=== PATIENT | female | born 1975 | race Caucasian/White ===

== ENCOUNTER 2018-02-12 19:41 | Emergency (ER) | payer MEDICAID ==
[2018-02-12] MEDS ORDERED: METHYLPREDNISOLONE PF 125MG/VIAL IVP ONE (19:57)
[2018-02-12] MEDS ORDERED: IPRATROPIUM/ALBUTEROL (0.5MG/3MG) NEB INH ONE (19:57)
[2018-02-12] MEDS ORDERED: 0.9 % SODIUM CHLORIDE 1000ML 1,000 ML IV SCH (20:00)
--- NOTE | 2018-02-12 20:01 | Emergency Department Record ---
History of Present Illness - General Chief Complaint: Abdominal Pain Stated Complaint: ABDOMINAL PAIN,COUGH Time Seen by Provider: 02/12/18 19:50 Source: Patient Mode of Arrival: Ambulatory Limitations: No limitations - History of Present Illness Initial Comments: 42 yo female presents to ED for evaluation of non-productive cough symptoms and difficulty breathing symptoms for the past 1 week. Patient denies fevers/chills , reports a history of sarcoidosis. Patient denies history of asthma/COPD previously. Patient denies health problems at her baseline. Patient is also a current smoker. MD Complaint: Cough Onset/Timin -: Week(s) Severity: Moderate Quality: Aching Consistency: Constant Improves With: Nothing Worsens With: Nothing Associated Symptoms: Denies other symptoms Treatments Prior to Arrival: "Cold medicine" - Related Data Home Medications Medication Instructions Recorded Confirmed Last Taken Albuterol Sulfate [Ventolin Hfa] 1 - 2 puff IH .EVERY 4-6 HOURS PRN 02/12/1802/20 Unknown Budesonide/Formoterol Fumarate 2 inh IH BID 02/12/18 02/12/18 Unknown [Symbicort 160-4.5 Mcg Inhaler] Gabapentin [Neurontin] 100 mg PO TID 02/12/18 02/12/18 Unknown Metoclopramide HCl [Reglan] 5 mg PO TID 02/12/18 02/12/18 Unknown Prochlorperazine Maleate 5 mg PO Q12H PRN 02/12/18 02/12/18 Unknown [Compazine] Venlafaxine HCl [Effexor Xr] 37.5 mg PO BID 02/12/18 02/12/18 Unknown Previous Rx's Medication Instructions Recorded Albuterol Sulfate [Proair Hfa] 1 - 2 puff IH .EVERY 4-6 HOURS PRN 02/12/18 #1 inhaler Doxycycline Hyclate 100 mg PO BID #18 tab 02/12/18 Prednisone [Prednisone 20Mg] 20 mg PO TID #12 tab 02/12/18 Allergies Allergy/AdvReac Type Severity Reaction Status Date / Time ampicillin Allergy RASH Verified 02/12/18 19:47 Travel Screening - Travel/Exposure Within Last 30 Days Have you traveled within the last 30 days?: No - Travel Symptoms Symptom Screening: None Review of Systems Constitutional: Denies: Chills, Fever, Malaise, Night sweats Eyes: Denies: Eye discharge, Eye pain ENT: Reports: Congestion. Denies: Ear pain, Epistaxis Respiratory: Reports: Cough, Dyspnea, Wheezes Cardiovascular: Denies: Chest pain, Dyspnea on exertion Endocrine: Denies: Fatigue, Heat or cold intolerance Gastrointestinal: Reports: Abdominal pain. Denies: Nausea, Vomiting Genitourinary: Denies: Incontinence, Retention Musculoskeletal: Denies: Arthralgia, Back pain Skin: Denies: Bruising, Change in color Neurological: Denies: Abnormal gait, Confusion, Headache, Seizure Psychiatric: Denies: Anxiety Hematological/Lymphatic: Denies: Anemia, Blood Clots Past Medical History - SOCIAL HISTORY Smoking Status: Current every day smoker Alcohol Use: None Drug Use: None - RESPIRATORY Hx Respiratory Disorders: Yes Comment:: Sarcoidosis - CARDIOVASCULAR Hx Cardio Disorders: No - NEURO Hx Neuro Disorders: No - GI Hx GI Disorders: Yes Hx Crohn's Disease: Yes - Hx Genitourinary Disorders: No - ENDOCRINE Hx Endocrine Disorders: No - MUSCULOSKELETAL Hx Musculoskeletal Disorders: Yes Hx Arthritis: Yes - PSYCH Hx Psych Problems: Yes Hx Anxiety: Yes Hx Depression: Yes - HEMATOLOGY/ONCOLOGY Hx Hematology/Oncology Disorders: No Family Medical History Any Significant Family History?: No Family Hx Comment (NOT TO BE USED IN PLACE OF ITEMS BELOW): denies Physical Exam - General General Appearance: Alert, Oriented x3, Cooperative, Moderate distress Limitations: No limitations - Head Head exam: Atraumatic, Normocephalic, Normal inspection Head exam detail: negative: Abrasion, Contusion, Garzon's sign, General tenderness, Hematoma, Laceration - Eye Eye exam: Normal appearance. negative: Conjunctival injection, Periorbital swelling, Periorbital tenderness, Scleral icterus - ENT Ear exam: negative: Auricular hematoma, Auricular trauma Nasal Exam: negative: Active bleeding, Discharge, Dried blood, Foreign body Mouth exam: negative: Drooling, Laceration, Muffled voice, Tongue elevation - Neck Neck exam: Normal inspection. negative: Meningismus, Tenderness - Respiratory Respiratory exam: Wheezes. negative: Rales, Respiratory distress, Rhonchi, Stridor - Cardiovascular Cardiovascular Exam: Normal rhythm, Normal heart sounds, Tachycardia - GI/Abdominal GI/Abdominal exam: Soft, Tenderness (Mild, diffuse TTP without rebound or guarding present.). negative: Rebound, Rigid - Rectal Rectal exam: Deferred - exam: Deferred - Extremities Extremities exam: Normal inspection. negative: Calf tenderness, Pedal edema, Tenderness - Back Back exam: Denies: CVA tenderness (R), CVA tenderness (L) - Neurological Neurological exam: Alert, Normal gait, Oriented X3 - Psychiatric Psychiatric exam: Anxious - Skin Skin exam: Normal color. negative: Abrasion Type of lesion: negative: abrasion Course Vital Signs 02/12/18 19:48 Temperature 98.3 F Pulse Rate [ 125 H Pulse Ox Probe] Respiratory 24 Rate Blood Pressure 152/107 [Left Arm] Pulse Ox 98 - Reevaluation(s) Reevaluation #1: 02/12/18 21:21 CXR: No acute process Small 12 mm lesion right mid-lung, likely artifact, cannot exclude pulmonary nodule. Compare with previous studies would be of benefit. Laboratory studies were reviewed and are grossly unremarkable for an acute process. Reevaluation #2: 02/12/18 21:31 Patient was reassessed and updated on all results, reports improvement in her symptoms following duoneb. Will prescribe Prednisone, Pro-air, and Doxycyline as directed for probable bronchitis symptoms. Patient agrees with the plan of care as directed. Repeat Pulse 89 down from 125 on initial examination. Medical Decision Making - Lab Data Result diagrams: 02/12/18 20:25 02/12/18 20:25 Disposition Disposition: Discharge Clinical Impression: Bronchitis Disposition: Home, Self-Care Condition: (2) Stable Instructions: Acute Bronchitis (ED) Additional Instructions: Return to ED if your symptoms worsen or if you have any concerns. Prednisone, Pro-air, and Doxycycline as directed. Follow-up with your family doctor in 3-5 days as directed. Prescriptions: Albuterol Sulfate [Proair Hfa] 1 - 2 puff IH .EVERY 4-6 HOURS PRN #1 inhaler PRN Reason: Difficulty In Breathing Doxycycline Hyclate 100 mg PO BID #18 tab. Prednisone [Prednisone 20Mg] 20 mg PO TID #12 tab Forms: Patient Portal Access Time of Disposition: 21:33 Quality - Quality Measures Quality Measures: N/A - Blood Pressure Screening Does Patient Have Any of the Following: No Blood Pressure Classification: Pre-Hypertensive BP Reading Systolic Measurement: 123 Diastolic Measurement: 74 Screening for High Blood Pressure: < Pre-Hypertensive BP, F/U Documented > [ G8950] Pre-Hypertensive Follow-up Interventions: Referral to alternative/primary care provider. First Hypertensive Follow-up Interventions: Referral to alternative/primary care provider.
[2018-02-12 20:33] LABS: BASO % 0.2 % (0-6); EOS % 1.4 % (0-6); GRAN % 69.8 % (47-80); HEMATOCRIT 39.8 % (35.0-47.0); HEMOGLOBIN 13.1 gm/dl (11.6-16.0); LYMPH % 20.6 % (16-45); MEAN CELL VOLUME 90.7 fl (81-97); MEAN CORPUSCULAR HEMOGLOBIN 29.8 pg (27-33); MEAN CORPUSCULAR HGB CONC 32.9 g/dl (32-36); MEAN PLATELET VOLUME 9.8 fl (7.4-10.4); PLATELET COUNT 318 K/uL (130-400); RED BLOOD COUNT 4.39 M/uL (3.80-5.40); RED CELL DISTRIBUTION WIDTH 13.3 % (11.5-14.5); WHITE BLOOD COUNT W/O DIFF 11.2 K/uL (4.2-12.2)
[2018-02-12 20:46] LABS: BILIRUBIN,TOTAL < 0.20 mg/dL (0.2-1.0); BLOOD UREA NITROGEN 7 mg/dL (6-20); CREATININE 0.7 mg/dL (0.5-0.9); EST GLOMERULAR FILTRATION RATE > 60 mL/min; TOTAL PROTEIN 7.3 g/dL (6.6-8.7)
[2018-02-12 20:48] LABS: GLUCOSE,RANDOM 138 mg/dL (74-109)
[2018-02-12 20:51] LABS: ALB/GLOB RATIO 1.5 (1.1-1.8); ALBUMIN 4.4 g/dL (4.0-5.0); ALKALINE PHOSPHATASE 105 U/L (35-104); ALT/SGPT 14 U/L (<33); AST/SGOT 20 U/L (10.0-35.0)
[2018-02-12 21:29] LABS: INFLUENZA A NEGATIVE (NEGATIVE); INFLUENZA B NEGATIVE (NEGATIVE)
== END 2018-02-12 21:50 | disposition home or self-care (01) ==
LOC: ER 19:41
DX: J20.9 Acute bronchitis, unspecified (principal); R06.00 Dyspnea, unspecified; R10.9 Unspecified abdominal pain; F17.210 Nicotine dependence, cigarettes, uncomplicated
CPT/HCPCS: 71046; 80053; 85025; 87400; 94640; 96374; 99284; J2930; J7030

== ENCOUNTER 2018-04-03 13:05 | Emergency (ER) | payer MEDICAID ==
[2018-04-03] MEDS: ACETAMINOPHEN 1,000 MG/100 ML BTL IVPB ONE (14:00)
[2018-04-03] MEDS: 0.9 % SODIUM CHLORIDE 1,000 ML BAG IV ONE (14:01)
[2018-04-03] MEDS: ONDANSETRON HCL IV 4 MG/2 ML VIAL IV ONE (14:01)
--- NOTE | 2018-04-03 14:01 | Emergency Department Record ---
History of Present Illness - General Chief Complaint: Abdominal Pain Stated Complaint: ABD PAIN Time Seen by Provider: 04/03/18 13:46 Source: Patient Mode of Arrival: Ambulatory Limitations: No limitations - History of Present Illness Initial Comments: The patient is here due to worsening of her chronic AP. She states she has a hx of Crohn's Dz and has had multiple abdominal surgeries including a ARIANA, C- section x2, and now is having worsening pain on her R side. She has had frequent nausea and loose stools but no vomiting or blood in the stool. The patient states the pain has been progressively worsening over the last month. She has doctor in [place] but just moved here to [place] a week ago. MD Complaint: Abdominal pain Onset/Timin -: Days(s) Location: RUQ, RLQ Severity scale (1-10): 9 Associated Symptoms: Diarrhea, Nausea - Related Data Patient : No Home Medications Medication Instructions Recorded Confirmed Last Taken Clonazepam 1 mg PO BID PRN 04/03/18 04/03/18 04/03/18 Previous Rx's Medication Instructions Recorded Albuterol Sulfate [Proair Hfa] 1 - 2 puff IH .EVERY 4-6 HOURS PRN 02/12/18 #1 inhaler Omeprazole [Prilosec] 20 mg PO DAILY #14 cap. 04/03/18 Allergies Allergy/AdvReac Type Severity Reaction Status Date / Time ampicillin Allergy RASH Verified 04/03/18 13:27 Travel Screening - Travel/Exposure Within Last 30 Days Have you traveled within the last 30 days?: No - Travel/Exposure Within Last Year Have you traveled outside the [place] in the last year?: No - Additonal Travel Details Have you been exposed to anyone with a communicable illness?: No - Travel Symptoms Symptom Screening: None Review of Systems Constitutional: Denies: Chills, Fever Eyes: Denies: Eye discharge ENT: Denies: Congestion Respiratory: Denies: Cough, Dyspnea Cardiovascular: Denies: Arrhythmia Endocrine: Denies: Fatigue Gastrointestinal: Reports: Abdominal pain, Diarrhea, Nausea. Denies: Vomiting Genitourinary: Denies: Dysuria Musculoskeletal: Denies: Arthralgia Skin: Denies: Bruising Past Medical History - SOCIAL HISTORY Smoking Status: Current every day smoker Alcohol Use: None Drug Use: None - RESPIRATORY Hx Respiratory Disorders: Yes Comment:: Sarcoidosis - CARDIOVASCULAR Hx Cardio Disorders: No - NEURO Hx Neuro Disorders: No - GI Hx GI Disorders: Yes Hx Crohn's Disease: Yes - Hx Genitourinary Disorders: No - ENDOCRINE Hx Endocrine Disorders: No - MUSCULOSKELETAL Hx Musculoskeletal Disorders: Yes Hx Arthritis: Yes - PSYCH Hx Psych Problems: Yes Hx Anxiety: Yes Hx Depression: Yes - HEMATOLOGY/ONCOLOGY Hx Hematology/Oncology Disorders: No Family Medical History Any Significant Family History?: No Family Hx Comment (NOT TO BE USED IN PLACE OF ITEMS BELOW): denies Physical Exam - General General Appearance: Alert, Oriented x3, Cooperative, Mild distress (due to AP.) - Head Head exam: Atraumatic, Normocephalic - Eye Eye exam: Normal appearance, PERRL - ENT Throat exam: Normal inspection. negative: Tonsillar erythema, Tonsillar exudate - Neck Neck exam: Normal inspection, Full ROM. negative: Tenderness - Respiratory Respiratory exam: Normal lung sounds bilaterally. negative: Respiratory distress - Cardiovascular Cardiovascular Exam: Regular rate, Normal rhythm, Normal heart sounds - GI/Abdominal GI/Abdominal exam: Soft, Tenderness (There is diffuse R sided tend RUQ=RLQ. The abdomen is soft with no guarding or rebound.). negative: Distended, Guarding, Rebound - Extremities Extremities exam: Normal inspection, Full ROM, Normal capillary refill. negative: Tenderness Course Vital Signs 04/03/18 13:07 Temperature 98.1 F Pulse Rate 101 H Respiratory 18 Rate Blood Pressure 126/83 Pulse Ox 100 - Reevaluation(s) Reevaluation #1: The patient is doing a lot better at this time. She is resting comfortably and just got back from CT. I did discuss the normal lab results with the patient. 04/03/18 16:00 Reevaluation #2: The patient is doing a lot better. I did discuss the normal CT scan. She is to see her PCP next week as planned. 04/03/18 17:08 Medical Decision Making - Lab Data Result diagrams: 04/03/18 13:36 04/03/18 13:36 Disposition Disposition: Discharge Clinical Impression: Chronic abdominal pain Disposition: Home, Self-Care Condition: (2) Stable Instructions: Abdominal Pain (ED) Additional Instructions: Please continue your regular medicines and add the Prilosec. Please see your family doctor or GI specialist next week for recheck. Return to the ER for any worsening symptoms of pain, fever, or vomiting. Prescriptions: Omeprazole [Prilosec] 20 mg PO DAILY #14 cap.dr Forms: Patient Portal Access Time of Disposition: 17:09 Quality - Quality Measures Quality Measures: N/A - Blood Pressure Screening View Details: Yes Does Patient Have Any of the Following: No Blood Pressure Classification: Normal BP Reading Systolic Measurement: 107 Diastolic Measurement: 62 Screening for High Blood Pressure: < Normal BP, F/U Not Required > [G8783]
[2018-04-03 14:09] LABS: BASO % 0.2 % (0-6); EOS % 3.9 % (0-6); GRAN % 60.7 % (47-80); HEMATOCRIT 41.9 % (35.0-47.0); LYMPH % 29.2 % (16-45); MEAN CELL VOLUME 90.7 fl (81-97); MEAN CORPUSCULAR HEMOGLOBIN 30.3 pg (27-33); MEAN CORPUSCULAR HGB CONC 33.4 g/dl (32-36); MEAN PLATELET VOLUME 9.8 fl (7.4-10.4); PLATELET COUNT 301 K/uL (130-400); RED BLOOD COUNT 4.62 M/uL (3.80-5.40); RED CELL DISTRIBUTION WIDTH 12.7 % (11.5-14.5); WHITE BLOOD COUNT W/O DIFF 6.7 K/uL (4.2-12.2)
[2018-04-03 14:20] LABS: BLOOD UREA NITROGEN 8 mg/dL (6-20); CREATININE 0.7 mg/dL (0.5-0.9); EST GLOMERULAR FILTRATION RATE > 60 mL/min
[2018-04-03 14:21] LABS: TOTAL PROTEIN 7.3 g/dL (6.6-8.7)
[2018-04-03 14:22] LABS: URINE APPEARANCE CLEAR; URINE BILIRUBIN NEGATIVE (NEGATIVE); URINE BLOOD NEGATIVE (NEGATIVE); URINE COLOR YELLOW; URINE GLUCOSE (UA) NEGATIVE (NEGATIVE); URINE KETONE NEGATIVE (NEGATIVE); URINE NITRITE NEGATIVE (NEGATIVE); URINE PROTEIN NEGATIVE (NEGATIVE); URINE UROBILINOGEN 0.2 E.U./dL (0.20 - 1.00)
[2018-04-03 14:23] LABS: GLUCOSE,RANDOM 91 mg/dL (74-109)
[2018-04-03 14:25] LABS: ALBUMIN 4.7 g/dL (4.0-5.0); ALKALINE PHOSPHATASE 90 U/L (35-104); ALT/SGPT 21 U/L (<33); AST/SGOT 26 U/L (10.0-35.0)
[2018-04-03 14:26] LABS: LIPASE 30 U/L (13-60)
[2018-04-03 14:26] LABS: AMPHETAMINE SCREEN URINE NOT DETECTED; BARBITURATE SCREEN URINE NOT DETECTED; BENZODIAZEPINE SCREEN URINE NOT DETECTED; COCAINE SCREEN URINE NOT DETECTED; METHADONE SCREEN URINE NOT DETECTED; METHAMPHETAMINE SCREEN NOT DETECTED; OPIATE SCREEN URINE NOT DETECTED; OXYCODONE SCREEN URINE NOT DETECTED; PHENCYCLIDINE SCREEN URINE NOT DETECTED; PROPOXYPHENE SCREEN URINE NOT DETECTED; THC SCREEN URINE NOT DETECTED; TRICYCLIC ANTIDEPRESSANT SCRN DETECTED
[2018-04-03 14:27] LABS: BILIRUBIN,DIRECT < 0.2 mg/dL (0-0.3)
[2018-04-03 14:34] LABS: URINE LEUKOCYTE ESTERASE TRACE (NEGATIVE)
[2018-04-03 14:35] LABS: URINE BACTERIA NONE SEEN; URINE RBC 0 - 2 (NONE SEEN); URINE SQUAMOUS EPITHELIAL CELL 0 - 2 /hpf; URINE WBC 0 - 2 (0-2/hpf)
[2018-04-03] MEDS: KETOROLAC 30 MG/ML VIAL IVP ONE (14:53)
--- NOTE | 2018-04-05 22:37 | CT SCAN REPORT ---
EXAM: CT SCAN ABDOMEN/PELVIS W CONTRAST HISTORY: ABDOMINAL PAIN. TECHNIQUE: Sequential axial images were obtained from the diaphragms through the ischiorectal fossa after the intravenous administration of 100 mL of Omnipaque-300 contrast material. FINDINGS: The visualized lung bases appear normal. The liver appears homogeneous. Gallbladder has been surgically removed. The pancreas and spleen appear normal. The adrenal glands and kidneys appear normal. No CT findings suggestive of obstructive uropathy. Small bowel appears normal. The appendix is visualized and appears normal. The terminal ileum appears normal. The colon appears normal. The urinary bladder appears normal. The osseous structures are normal. IMPRESSION: NO ACUTE ABDOMINAL OR PELVIC DISEASE PROCESS. THE APPENDIX IS WELL-VISUALIZED AND APPEARS NORMAL. THE TERMINAL ILEUM APPEARS NORMAL. JOB NUMBER: [id number] MTDD
== END 2018-04-03 17:20 | disposition home or self-care (01) ==
LOC: ER 13:05
DX: G89.29 Other chronic pain (principal); R10.31 Right lower quadrant pain; R10.11 Right upper quadrant pain; R19.7 Diarrhea, unspecified; R11.0 Nausea; F17.210 Nicotine dependence, cigarettes, uncomplicated
CPT/HCPCS: 99284 ×2; 96365; 96375; 83690; 85025; 80076; 80048; 81001; 80305; 74177; Q9967; J1885; J2405; J7030

== ENCOUNTER 2018-05-07 22:58 | Emergency (ER) | payer MEDICAID ==
--- NOTE | 2018-05-07 23:11 | Emergency Department Record ---
History of Present Illness - General Chief Complaint: Difficulty Breathing Stated Complaint: SHORT OF BREATH Time Seen by Provider: 05/07/18 23:06 Source: Patient Mode of Arrival: Ambulatory Limitations: No limitations - History of Present Illness Initial Comments: 42 yo female presents to ED for evaluation of cough and difficulty in breathing symptoms for the past several days. Patient was seen 04/23 at [facility], diagnosed with a crohn's flare as well as CAP but sandy not fill her antibiotic prescription. Patient denies previous history of lung disease. Patient denies fevers, chills, or productive cough symptoms. MD Complaint: Shortness of breath Severity: Moderate Consistency: Constant Improves With: Nothing Worsens With: Coughing Context: Recent URI Associated Symptoms: Denies other symptoms Treatments Prior to Arrival: None - Related Data Home Oxygen Therapy: No Previous Rx's Medication Instructions Recorded Albuterol Sulfate [Proair Hfa] 1 - 2 puff IH .EVERY 4-6 HOURS PRN 02/12/18 #1 inhaler Allergies Allergy/AdvReac Type Severity Reaction Status Date / Time ampicillin Allergy RASH Verified 05/07/18 23:34 Review of Systems Constitutional: Denies: Chills, Fever, Malaise, Night sweats Eyes: Denies: Eye discharge, Eye pain ENT: Reports: Congestion. Denies: Ear pain, Epistaxis Respiratory: Reports: Cough, Dyspnea Cardiovascular: Denies: Chest pain, Dyspnea on exertion, Edema Endocrine: Denies: Fatigue, Heat or cold intolerance Gastrointestinal: Denies: Abdominal pain, Nausea, Vomiting Genitourinary: Denies: Incontinence, Retention Musculoskeletal: Denies: Arthralgia, Back pain, Gout, Joint swelling Skin: Denies: Bruising, Change in color, Change in hair/nails Neurological: Denies: Abnormal gait, Confusion, Headache, Seizure Psychiatric: Denies: Anxiety Hematological/Lymphatic: Denies: Anemia, Blood Clots Past Medical History - SOCIAL HISTORY Smoking Status: Current every day smoker Drug Use: None - RESPIRATORY Hx Respiratory Disorders: Yes Comment:: Sarcoidosis - CARDIOVASCULAR Hx Cardio Disorders: No - NEURO Hx Neuro Disorders: No - GI Hx GI Disorders: Yes Hx Crohn's Disease: Yes - Hx Genitourinary Disorders: No - ENDOCRINE Hx Endocrine Disorders: No - MUSCULOSKELETAL Hx Musculoskeletal Disorders: Yes Hx Arthritis: Yes - PSYCH Hx Psych Problems: Yes Hx Anxiety: Yes Hx Depression: Yes - HEMATOLOGY/ONCOLOGY Hx Hematology/Oncology Disorders: No Family Medical History Family Hx Comment (NOT TO BE USED IN PLACE OF ITEMS BELOW): denies Physical Exam - General General Appearance: Alert, Oriented x3, Cooperative, Mild distress, Anxious Limitations: No limitations - Head Head exam: Atraumatic, Normocephalic, Normal inspection Head exam detail: negative: Abrasion, Contusion, Garzon's sign, General tenderness, Hematoma, Laceration - Eye Eye exam: Normal appearance. negative: Conjunctival injection, Periorbital swelling, Periorbital tenderness, Scleral icterus - ENT Ear exam: negative: Auricular hematoma, Auricular trauma Nasal Exam: negative: Active bleeding, Discharge, Dried blood, Foreign body Mouth exam: negative: Drooling, Laceration, Muffled voice, Tongue elevation - Neck Neck exam: Normal inspection. negative: Meningismus, Tenderness - Respiratory Respiratory exam: Normal lung sounds bilaterally. negative: Rales, Respiratory distress, Rhonchi, Stridor - Cardiovascular Cardiovascular Exam: Regular rate, Normal rhythm, Normal heart sounds - GI/Abdominal GI/Abdominal exam: Soft. negative: Rebound, Rigid, Tenderness - Rectal Rectal exam: Deferred - exam: Deferred - Extremities Extremities exam: Normal inspection. negative: Calf tenderness, Pedal edema, Tenderness - Back Back exam: Denies: CVA tenderness (R), CVA tenderness (L) - Neurological Neurological exam: Alert, Normal gait, Oriented X3 - Psychiatric Psychiatric exam: Normal affect, Normal mood - Skin Skin exam: Normal color. negative: Abrasion Type of lesion: negative: abrasion Course - Reevaluation(s) Reevaluation #1: 05/07/18 23:39 Laboratory studies were reviewed and are grossly unremarkable for an acute process. WBC 5.5 with 46% Neutrophils. CO2 21 AG 17 Findings appear c/.w hyperventilation. CXR: No acute process Patient was updated on all results, history, clinical examination, laboratory studies, and CXR findings all suggest viral etiology. Patient appears stable for discharge with continued symptomatic care as directed. Medical Decision Making - Lab Data Result diagrams: 05/07/18 23:18 05/07/18 23:18 Disposition Disposition: Discharge Clinical Impression: URI (upper respiratory infection) Qualifiers: URI type: unspecified URI Qualified Code(s): J06.9 - Acute upper respiratory infection, unspecified Disposition: Home, Self-Care Condition: (2) Stable Instructions: Upper Respiratory Infection (ED) Additional Instructions: Return to ED if your symptoms worsen or if you have any concerns. Follow-up with your family doctor in 3-5 days as directed. Forms: Patient Portal Access Time of Disposition: 23:44 Quality - Quality Measures Quality Measures: N/A - Blood Pressure Screening Does Patient Have Any of the Following: No Blood Pressure Classification: Hypertensive Reading Systolic Measurement: 166 Diastolic Measurement: 116 Screening for High Blood Pressure: < First Hypertensive BP, F/U Documented > [ G8950] First Hypertensive Follow-up Interventions: Referral to alternative/primary care provider.
[2018-05-07 23:25] LABS: BASO % 0.2 % (0-6); EOS % 3.8 % (0-6); GRAN % 39.6 % (47-80); HEMATOCRIT 36.2 % (35.0-47.0); HEMOGLOBIN 12.5 gm/dl (11.6-16.0); LYMPH % 46.1 % (16-45); MEAN CELL VOLUME 86.8 fl (81-97); MEAN CORPUSCULAR HGB CONC 34.5 g/dl (32-36); MEAN PLATELET VOLUME 9.4 fl (7.4-10.4); MONO % 10.3 % (0-9); PLATELET COUNT 328 K/uL (130-400); RED BLOOD COUNT 4.17 M/uL (3.80-5.40); WHITE BLOOD COUNT W/O DIFF 5.5 K/uL (4.2-12.2)
[2018-05-07 23:32] LABS: BLOOD UREA NITROGEN 7 mg/dL (6-20)
[2018-05-07 23:33] LABS: CREATININE 0.5 mg/dL (0.5-0.9); EST GLOMERULAR FILTRATION RATE > 60 mL/min
[2018-05-07 23:35] LABS: GLUCOSE,RANDOM 125 mg/dL (74-109)
[2018-05-07 23:38] LABS: ALB/GLOB RATIO 1.5 (1.1-1.8); ALBUMIN 4.2 g/dL (4.0-5.0); ALKALINE PHOSPHATASE 104 U/L (45-87); ALT/SGPT 22 U/L (<33); AST/SGOT 28 U/L (10.0-35.0)
[2018-05-07 23:40] LABS: INFLUENZA A NEGATIVE (NEGATIVE); INFLUENZA B NEGATIVE (NEGATIVE)
--- NOTE | 2018-05-08 14:41 | RADIOLOGY REPORT ---
EXAM: CHEST, TWO VIEWS HISTORY: DIFFICULTY BREATHING. DRY COUGH AND LOWER CHEST PAIN FOR THE PAST WEEK. TECHNIQUE: PA and lateral upright views of the chest were obtained. Comparison: 02/12/18. FINDINGS: The heart, mediastinum, and pulmonary vasculature are normal. Stable post surgical changes are present within the right hemithorax. The lungs are hyperinflated. There are no acute infiltrates or effusions. There is no pneumothorax. The bones appear intact. IMPRESSION: 1. STABLE POST SURGICAL CHANGES AND HYPERINFLATION. 2. NO ACUTE CHEST PATHOLOGY. JOB NUMBER: [id number] MTDD
== END 2018-05-07 23:56 | disposition home or self-care (01) ==
LOC: ER 22:58
DX: J06.9 Acute upper respiratory infection, unspecified (principal); R06.02 Shortness of breath; R07.9 Chest pain, unspecified; F17.210 Nicotine dependence, cigarettes, uncomplicated
CPT/HCPCS: 71046; 80053; 85025; 87400; 99283; 99284

== ENCOUNTER 2018-05-28 15:45 | Emergency (ER) | payer MEDICAID ==
--- NOTE | 2018-05-28 16:38 | Emergency Department Record ---
History of Present Illness - General Chief Complaint: Fall Injury Stated Complaint: SLIP AND FALL Time Seen by Provider: 05/28/18 16:32 Source: Patient, RN notes reviewed Mode of Arrival: Ambulatory - History of Present Illness Initial Comments: fell 6 hour ago and hurt her right knee and fell one hour ago and hurt her right elbow and right shoulder and thoracic spine T8 areaPMH crohns disease sarcodosis of lung adn migraines and right knee had lateral release september 2017. Complaint: Fall Fall From: Standing Fall Witnessed: Yes, by family Place Fall Occurred: Other Loss of Consciousness: None Prolonged Down Time?: No Symptoms Prior to Fall: None Severity: Moderate Severity scale (1-10): 8 Quality: Aching Associated Symptoms: Denies - [place] Coma Scale Eye Response: (4) Open spontaneously Motor Response: (6) Obeys commands Verbal Response: (5) Oriented [place] Total: 15 - Related Data Previous Rx's Medication Instructions Recorded Albuterol Sulfate [Proair Hfa] 1 - 2 puff IH .EVERY 4-6 HOURS PRN 02/12/18 #1 inhaler Naproxen [Naprosyn] 500 mg PO BID #30 tablet 05/28/18 Allergies Allergy/AdvReac Type Severity Reaction Status Date / Time ampicillin Allergy RASH Verified 05/28/18 15:57 Travel Screening - Travel/Exposure Within Last 30 Days Have you traveled within the last 30 days?: No Review of Systems Reviewed: No additional complaints except as noted below Constitutional: Reports: As per HPI. Denies: Chills, Fever, Malaise, Night sweats, Weakness, Weight change Eyes: Reports: As per HPI. Denies: Eye discharge, Eye pain, Photophobia, Vision change ENT: Reports: As per HPI. Denies: Congestion, Dental pain, Ear pain, Epistaxis , Hearing loss, Throat pain Respiratory: Reports: As per HPI. Denies: Cough, Dyspnea, Hemoptysis, Stridor, Wheezes Cardiovascular: Reports: As per HPI. Denies: Arrhythmia, Chest pain, Dyspnea on exertion, Edema, Murmurs, Orthopnea, Palpitations, Paroxysmal nocturnal dyspnea, Rheumatic Fever, Syncope Endocrine: Reports: As per HPI. Denies: Fatigue, Heat or cold intolerance, Polydipsia, Polyuria Gastrointestinal: Reports: As per HPI. Denies: Abdominal pain, Constipation, Diarrhea, Hematemesis, Hematochezia, Melena, Nausea, Vomiting Genitourinary: Reports: As per HPI. Denies: Abnormal menses, Discharge, Dyspareunia, Dysuria, Frequency, Hematuria, Incontinence, Retention, Urgency Musculoskeletal: Reports: As per HPI, Back pain, Other (right knee elbow and shoulder pain). Denies: Arthralgia, Gout, Joint swelling, Myalgia, Neck pain Skin: Reports: As per HPI. Denies: Bruising, Change in color, Change in hair/ nails, Lesions, Pruritus, Rash Neurological: Reports: As per HPI. Denies: Abnormal gait, Confusion, Headache, Numbness, Paresthesias, Seizure, Tingling, Tremors, Vertigo, Weakness Psychiatric: Reports: As per HPI. Denies: Anxiety, Auditory hallucinations, Depression, Homicidal thoughts, Suicidal thoughts, Visual hallucinations Hematological/Lymphatic: Reports: As per HPI. Denies: Anemia, Blood Clots, Easy bleeding, Easy bruising, Swollen glands Past Medical History - SOCIAL HISTORY Smoking Status: Current every day smoker Alcohol Use: None Drug Use: None - RESPIRATORY Hx Respiratory Disorders: Yes Comment:: Sarcoidosis - CARDIOVASCULAR Hx Cardio Disorders: No - NEURO Hx Neuro Disorders: No - GI Hx GI Disorders: Yes Hx Crohn's Disease: Yes - Hx Genitourinary Disorders: No - ENDOCRINE Hx Endocrine Disorders: No - MUSCULOSKELETAL Hx Musculoskeletal Disorders: Yes Hx Arthritis: Yes - PSYCH Hx Psych Problems: Yes Hx Anxiety: Yes Hx Depression: Yes - HEMATOLOGY/ONCOLOGY Hx Hematology/Oncology Disorders: No Family Medical History Any Significant Family History?: No Family Hx Comment (NOT TO BE USED IN PLACE OF ITEMS BELOW): denies Physical Exam - General General Appearance: Alert, Oriented x3, Cooperative, No acute distress - Head Head exam: Normal inspection - Eye Eye exam: Normal appearance, PERRL Pupils: Normal accommodation - ENT ENT exam: Normal exam, Mucous membranes moist, Normal external ear exam, Normal orophraynx, TM's normal bilaterally Ear exam: Normal external inspection. negative: External canal tenderness Nasal Exam: Normal inspection. negative: Discharge, Sinus tenderness Mouth exam: Normal external inspection, Tongue normal Teeth exam: Normal inspection. negative: Dental caries Throat exam: Normal inspection. negative: Tonsillar erythema, Tonsillar exudate - Neck Neck exam: Normal inspection, Full ROM. negative: Tenderness - Respiratory Respiratory exam: Normal lung sounds bilaterally. negative: Respiratory distress - Cardiovascular Cardiovascular Exam: Regular rate, Normal rhythm, Normal heart sounds - GI/Abdominal GI/Abdominal exam: Soft, Normal bowel sounds. negative: Tenderness - Rectal Rectal exam: Deferred - exam: Deferred - Extremities Extremities exam: Normal inspection, Full ROM, Normal capillary refill. negative: Tenderness - Back Back exam: Reports: Normal inspection, Full ROM. Denies: Muscle spasm, Rash noted, Tenderness - Neurological Neurological exam: Alert, Normal gait, Oriented X3, Reflexes normal - Psychiatric Psychiatric exam: Normal affect, Normal mood - Skin Skin exam: Dry, Intact, Normal color, Warm Course Vital Signs 05/28/18 15:53 Temperature 98.1 F Pulse Rate 106 H Respiratory 18 Rate Blood Pressure 138/91 Pulse Ox 100 Medical Decision Making - Data Complexity MDM Data: X-Ray Ordered and/or Reviewed (thoracic spine neg shoulder neg elbow neg knee neg) Disposition Clinical Impression: Strain of thoracic region Qualifiers: Encounter type: initial encounter Qualified Code(s): S29.019A - Strain of muscle and tendon of unspecified wall of thorax, initial encounter Strain of knee and leg, right Qualifiers: Encounter type: initial encounter Qualified Code(s): S86.911A - Strain of unspecified muscle(s) and tendon(s) at lower leg level, right leg, initial encounter Shoulder contusion Qualifiers: Encounter type: initial encounter Laterality: right Qualified Code(s): S40.011A - Contusion of right shoulder, initial encounter Elbow contusion Qualifiers: Encounter type: initial encounter Laterality: right Qualified Code(s): S50.01XA - Contusion of right elbow, initial encounter Disposition: Home, Self-Care Condition: (1) Good Instructions: Muscle Strain (ED), Contusion in Adults (ED), Knee Pain (ED) Additional Instructions: follow up with family in one week naprosyn 500 mg twice a day for pain. Prescriptions: Naproxen [Naprosyn] 500 mg PO BID #30 tablet Forms: Patient Portal Access Time of Disposition: 17:26 Quality - Quality Measures Quality Measures: N/A - Blood Pressure Screening Does Patient Have Any of the Following: No Blood Pressure Classification: Hypertensive Reading Systolic Measurement: 138 Diastolic Measurement: 91 Screening for High Blood Pressure: < Pre-Hypertensive BP, F/U Documented > [ G8950] Pre-Hypertensive Follow-up Interventions: Referral to alternative/primary care provider.
--- NOTE | 2018-05-30 10:00 | RADIOLOGY REPORT ---
EXAM: THORACIC SPINE HISTORY: FALL. TECHNIQUE: AP, lateral and swimmer's views of the thoracic spine were obtained. Comparison: None. Encounter: Initial. FINDINGS: The upper most thoracic spine is not well evaluated due to superimposition of anatomical structures. The visualized alignment and vertebral body heights are maintained. Mild multilevel degenerative disk disease. There has been anterior fusion in the cervical spine. IMPRESSION: NO EVIDENCE FOR A THORACIC SPINE COMPRESSION FRACTURE. JOB NUMBER: [id number] MTDD
--- NOTE | 2018-05-30 10:17 | RADIOLOGY REPORT ---
EXAM: RIGHT SHOULDER HISTORY: RIGHT SHOULDER PAIN AFTER FALL. TECHNIQUE: AP Grashey and scapular Y-views of the right shoulder were obtained. Comparison: None. Encounter: Initial. FINDINGS: There is no bone or joint abnormality identified. Surgical changes are noted within the visualized right forearm. IMPRESSION: NO EVIDENCE FOR A FRACTURE OR DISLOCATION. JOB NUMBER: [id number] MTDD
--- NOTE | 2018-05-30 10:19 | RADIOLOGY REPORT ---
EXAM: RIGHT ELBOW HISTORY: PAIN AFTER FALL. TECHNIQUE: AP oblique and lateral views, along with an olecranon view of the right elbow were obtained. Comparison: None. Encounter: Initial. FINDINGS: No acute bone or joint abnormality is identified. There is some degenerative spurring at the coronoid process. There is no elbow joint effusion. IMPRESSION: NO EVIDENCE FOR FRACTURE OR DISLOCATION. JOB NUMBER: [id number] MTDD
--- NOTE | 2018-05-30 10:22 | RADIOLOGY REPORT ---
EXAM: RIGHT KNEE HISTORY: PAIN AFTER FALL. TECHNIQUE: AP, lateral and Merchant views of the right knee were obtained. Comparison: None. Encounter: Initial. FINDINGS: No acute bone or joint abnormality is identified. The joint spaces are preserved without degenerative changes. There is no suprapatellar joint effusion. IMPRESSION: NO EVIDENCE FOR FRACTURE OR DISLOCATION. JOB NUMBER: [id number] MTDD
== END 2018-05-28 17:42 | disposition home or self-care (01) ==
LOC: ER 15:45
DX: S29.019A Strain of muscle and tendon of unspecified wall of thorax, initial encounter (principal); S86.911A Strain of unspecified muscle(s) and tendon(s) at lower leg level, right leg, initial encounter; S40.011A Contusion of right shoulder, initial encounter; S50.01XA Contusion of right elbow, initial encounter; W00.0XXA Fall on same level due to ice and snow, initial encounter; Y93.01 Activity, walking, marching and hiking; F17.210 Nicotine dependence, cigarettes, uncomplicated
CPT/HCPCS: 72072; 99283; 99284

== ENCOUNTER 2018-08-12 18:48 | Emergency (ER) | payer MEDICAID ==
[2018-08-12] MEDS ORDERED: 0.9 % SODIUM CHLORIDE 1,000 ML BAG IV ONE (19:34)
--- NOTE | 2018-08-12 19:35 | Emergency Department Record ---
History of Present Illness - General Chief Complaint: Abdominal Pain Stated Complaint: ABDOMINAL PAIN Time Seen by Provider: 08/12/18 19:34 Source: Patient, Family Mode of Arrival: Ambulatory Limitations: No limitations - History of Present Illness Initial Comments: 42 yo female presents with about a month of abdominal pain, loose stools, joint aches, blood in the stools. She has Crohn's disease. Her Crohn's was diagnosed in 2016. She is treated by a physician in [place]. She is in a study for treatment with Crohn's with a monthly injection. She has not reported these symptoms to her treatment team. She has constant pain in the mid abdomen. Her joints ache. No fever. At times she has mucous like bowel movements. Her PCP is near [place] as well. The nurse coordinator for the study is Paulina [phone] Complaint: Abdominal pain Onset/Timin -: Week(s) Location: LLQ, RLQ Radiation: LLQ, RLQ Migration to: Periumbilical Severity: Moderate Severity scale (1-10): 8 Quality: Cramping, Sharp, Stabbing Consistency: Constant Improves With: Nothing Worsens With: Nothing Context: Other Associated Symptoms: Diarrhea, Nausea - Related Data LMP (females 10-50): Unknown Patient : No Previous Rx's Medication Instructions Recorded Albuterol Sulfate [Proair Hfa] 1 - 2 puff IH .EVERY 4-6 HOURS PRN 02/12/18 #1 inhaler Allergies Allergy/AdvReac Type Severity Reaction Status Date / Time ampicillin Allergy RASH Unverified 05/30/18 14:16 Travel Screening - Travel/Exposure Within Last 30 Days Have you traveled within the last 30 days?: No - Travel Symptoms Symptom Screening: Diarrhea, Stomach Pain Review of Systems Constitutional: Reports: Malaise, Weakness. Denies: Chills, Fever Eyes: Denies: Eye discharge, Eye pain, Photophobia, Vision change ENT: Denies: Congestion, Throat pain Respiratory: Denies: Cough, Dyspnea, Hemoptysis, Stridor, Wheezes Cardiovascular: Denies: Chest pain, Palpitations, Syncope Endocrine: Reports: Fatigue. Denies: Heat or cold intolerance, Polydipsia, Polyuria Gastrointestinal: Reports: Abdominal pain, Diarrhea, Hematochezia, Nausea, Vomiting. Denies: Constipation, Hematemesis, Melena Genitourinary: Denies: Dysuria, Urgency Musculoskeletal: Denies: Arthralgia, Back pain, Myalgia Skin: Denies: Bruising, Change in color, Rash Neurological: Denies: Headache Psychiatric: Denies: Anxiety Hematological/Lymphatic: Denies: Blood Clots, Easy bleeding, Easy bruising Past Medical History - SOCIAL HISTORY Smoking Status: Current every day smoker Alcohol Use: None Drug Use: None - RESPIRATORY Hx Respiratory Disorders: Yes Comment:: Sarcoidosis - CARDIOVASCULAR Hx Cardio Disorders: No - NEURO Hx Neuro Disorders: No - GI Hx GI Disorders: Yes Hx Crohn's Disease: Yes - Hx Genitourinary Disorders: No - ENDOCRINE Hx Endocrine Disorders: No - MUSCULOSKELETAL Hx Musculoskeletal Disorders: Yes Hx Arthritis: Yes - PSYCH Hx Psych Problems: Yes Hx Anxiety: Yes Hx Depression: Yes - HEMATOLOGY/ONCOLOGY Hx Hematology/Oncology Disorders: No Family Medical History Any Significant Family History?: No Family Hx Comment (NOT TO BE USED IN PLACE OF ITEMS BELOW): denies Physical Exam - General General Appearance: Alert, Oriented x3, Cooperative, No acute distress Limitations: No limitations - Head Head exam: Atraumatic, Normal inspection - Eye Eye exam: Normal appearance, PERRL. negative: Conjunctival injection, Scleral icterus - ENT ENT exam: Normal exam, Mucous membranes moist Ear exam: Normal external inspection Nasal Exam: Normal inspection Mouth exam: Normal external inspection Teeth exam: Normal inspection Throat exam: Normal inspection - Neck Neck exam: Normal inspection - Respiratory Respiratory exam: Normal lung sounds bilaterally. negative: Respiratory distress - Cardiovascular Cardiovascular Exam: Regular rate, Normal rhythm, Normal heart sounds - GI/Abdominal GI/Abdominal exam: Soft, Tenderness (tender lower abdomen RLQ and LLQ). negative: Distended, Guarding, Rebound, Rigid - exam: Deferred - Extremities Extremities exam: Normal inspection. negative: Pedal edema, Tenderness - Back Back exam: Denies: CVA tenderness (R), CVA tenderness (L) - Neurological Neurological exam: Alert, Oriented X3 - Psychiatric Psychiatric exam: Normal affect, Normal mood - Skin Skin exam: Dry, Intact, Normal color, Warm Course Vital Signs 08/12/18 19:03 Temperature 98.3 F Pulse Rate 117 H Respiratory 18 Rate Blood Pressure 149/95 Pulse Ox 100 - Reevaluation(s) Reevaluation #1: 04/09/19 20:07 The CBC was reviewed. No acute changes The BMP is normal 08/12/18 20:08 The Lipase is normal 08/12/18 20:25 EGD and Balloon dilation at [facility]. Dr Nielsen. 11/19/17. 08/12/18 20:30 CT of the abdomen and pelvis 04/02/18 was normal 08/12/18 20:55 The LFT's are normal The CRP is 0.5 08/12/18 20:58 A phone message was left with the watershed coordinator Paulina asking for a call back 08/12/18 21:45 The UA is negative 08/12/18 22:[address] demonstrates mild TI wall thickening and proximal ascending colon consistent with mild Crohn's. No fistula or other abnormalities. The patient is stable for DC. Her study contact coordinator did not call back. She is to call tomorrow for close GI follow up. She will be provided a copy of her CT to review with her treatment team in [place]. Medical Decision Making - Lab Data Result diagrams: 08/12/18 19:13 08/12/18 19:13 Disposition Disposition: Discharge Clinical Impression: Abdominal pain, Crohns disease Disposition: Home, Self-Care Condition: (1) Good Instructions: Crohn Disease (ED), Abdominal Pain (ED) Additional Instructions: Call your doctor for the next available follow up appointment regarding your Crohn's and treatment in the study. Take the CT scan with you to your appointment Return to the ER for a recheck if worse, any new concerns or questions Take the prescriptions provided as directed Review this ER visit and the tests performed with your family doctor and GI specialist. CT Reading in the ED: The CT demonstrates minor terminal ileum wall thickening and proximal ascending colon consistent with mild Crohn's. No fistula or other abnormalities. Forms: Patient Portal Access Time of Disposition: 22:17 Quality - Quality Measures Quality Measures: N/A - Blood Pressure Screening Does Patient Have Any of the Following: No Blood Pressure Classification: Hypertensive Reading Systolic Measurement: 144 Diastolic Measurement: 96 Screening for High Blood Pressure: < Pre-Hypertensive BP, F/U Documented > [ G8950] Pre-Hypertensive Follow-up Interventions: Referral to alternative/primary care provider.
[2018-08-12 19:42] LABS: BASO % 0.2 % (0-6); EOS % 4.2 % (0-6); GRAN % 40.8 % (47-80); HEMATOCRIT 41.7 % (35.0-47.0); HEMOGLOBIN 14.1 gm/dl (11.6-16.0); LYMPH % 46.1 % (16-45); MEAN CELL VOLUME 86.5 fl (81-97); MEAN CORPUSCULAR HEMOGLOBIN 29.3 pg (27-33); MEAN CORPUSCULAR HGB CONC 33.8 g/dl (32-36); MEAN PLATELET VOLUME 10.2 fl (7.4-10.4); MONO % 8.7 % (0-9); PLATELET COUNT 303 K/uL (130-400); RED BLOOD COUNT 4.82 M/uL (3.80-5.40); RED CELL DISTRIBUTION WIDTH 13.3 % (11.5-14.5); WHITE BLOOD COUNT W/O DIFF 5.8 K/uL (4.2-12.2)
[2018-08-12] MEDS ORDERED: 0.9 % SODIUM CHLORIDE 1000ML 1,000 ML IV ONE (19:55)
[2018-08-12 20:01] LABS: BILIRUBIN,TOTAL < 0.20 mg/dL (0.2-1.0); BLOOD UREA NITROGEN 11 mg/dL (6-20); CREATININE 0.6 mg/dL (0.5-0.9); EST GLOMERULAR FILTRATION RATE > 60 mL/min; LIPASE 28 U/L (13-60)
[2018-08-12 20:03] LABS: GLUCOSE,RANDOM 99 mg/dL (74-109)
[2018-08-12 20:06] LABS: ALB/GLOB RATIO 1.9 (1.1-1.8); ALBUMIN 4.6 g/dL (4.0-5.0); ALKALINE PHOSPHATASE 106 U/L (35-104); ALT/SGPT 17 U/L (<33); AST/SGOT 23 U/L (10.0-35.0)
[2018-08-12 20:09] LABS: URINE APPEARANCE CLEAR; URINE BILIRUBIN NEGATIVE (NEGATIVE); URINE BLOOD NEGATIVE (NEGATIVE); URINE COLOR YELLOW; URINE GLUCOSE (UA) NEGATIVE (NEGATIVE); URINE KETONE NEGATIVE (NEGATIVE); URINE LEUKOCYTE ESTERASE TRACE (NEGATIVE); URINE NITRITE NEGATIVE (NEGATIVE); URINE PROTEIN NEGATIVE (NEGATIVE); URINE UROBILINOGEN 0.2 E.U./dL (0.20 - 1.00)
[2018-08-12 20:30] LABS: URINE EPITHELIAL CELLS 0 - 2 (FEW); URINE RBC NONE SEEN (NONE SEEN); URINE WBC 0 - 2 (0-2/hpf)
[2018-08-12] MEDS ORDERED: ONDANSETRON HCL IV 4 MG/2 ML VIAL IVP ONE (21:24)
[2018-08-12] MEDS ORDERED: MORPHINE SULFATE 10 MG/ML VIAL IVP ONE (21:24)
[2018-08-12] MEDS ORDERED: ONDANSETRON 4 MG ODT TABLET SL ONE (22:17)
[2018-08-12] MEDS ORDERED: HYDROCODONE/APAP 5/325MG TABLET PO ONE (22:17)
--- NOTE | 2018-08-14 12:43 | CT SCAN REPORT ---
EXAM: CT SCAN OF THE ABDOMEN AND PELVIS WITH CONTRAST HISTORY: ABDOMINAL PAIN WITH VOMITING AND BLOODY STOOLS. HISTORY OF CROHN'S DISEASE. TECHNIQUE: Standard CT imaging of the abdomen and pelvis was performed with oral and intravenous contrast. 100 ml of Omnipaque 300 were administered. Comparison: 04/03/18. FINDINGS: Tiny noncalcified nodules are again noted within the right lower lobe and are unchanged. Lung sutures are noted along the posteromedial aspect of the right lower lobe and are unchanged. the heart is normal in size. The liver is unremarkable. The gallbladder is surgically absent. The biliary tree , pancreas, spleen, and adrenal glands are normal. The kidneys and ureters are unremarkable. The aorta is normal in caliber. There is no retroperitoneal lymphadenopathy. There is mild wall thickening and enhancement of the terminal ileum consistent with minor inflammation. There is no stricture or abscess. There is minor wall thickening of the adjacent proximal ascending colon. The remaining portions of the colon appear normal. Moderate stool is present throughout the colon. There is no obstruction or pneumoperitoneum. No other focal inflammatory changes are identified. The urinary bladder appears normal. The uterus is surgically absent. Degenerative changes are present within the lumbosacral spine. IMPRESSION: 1. THERE IS MILD WALL THICKENING OF THE TERMINAL ILEUM AND PROXIMAL ASCENDING COLON CONSISTENT WITH MINOR CROHN'S DISEASE. THERE IS NO ASSOCIATED FISTULA OR ABSCESS. 2. THERE ARE NO OTHER ACUTE FINDINGS. JOB NUMBER: [id number] [facility]
== END 2018-08-12 22:31 | disposition home or self-care (01) ==
LOC: ER 18:48
DX: K50.90 Crohn's disease, unspecified, without complications (principal); R10.84 Generalized abdominal pain; R19.7 Diarrhea, unspecified; R11.0 Nausea; F17.210 Nicotine dependence, cigarettes, uncomplicated
CPT/HCPCS: 99284 ×2; 96374; 96375; 96361; 83690; 85025; 86140; 80053; 81001; 74177; Q9967; J2405; J2270; J7030

== ENCOUNTER 2018-11-29 15:35 | Emergency (ER) | payer MEDICAID ==
[2018-11-29] MEDS ORDERED: 0.9 % SODIUM CHLORIDE 1,000 ML BAG IV ONE (16:09)
[2018-11-29] MEDS ORDERED: KETOROLAC 30 MG/ML VIAL IVP ONE (16:09)
[2018-11-29] MEDS ORDERED: ONDANSETRON HCL IV 4 MG/2 ML VIAL IV ONE (16:09)
[2018-11-29] MEDS ORDERED: METHYLPREDNISOLONE PF 125MG/VIAL IVP ONE (16:11)
--- NOTE | 2018-11-29 16:11 | Emergency Department Record ---
History of Present Illness - General Chief Complaint: Abdominal Pain Stated Complaint: ABD PAIN Time Seen by Provider: 11/29/18 16:01 Source: Patient Mode of Arrival: Ambulatory - History of Present Illness Initial Comments: abdominal pain and had colonoascopy 5 days ago and was told her kraig's disease is active and no vomiting and nausea present and she had 6 loose stools in the last 24 hours.PSH appendectomy ,hysterectomy and GB removal. Patient GI DR in [place] and primary Dr is in [place] Onset/Timin -: Month(s) Location: [facility] Severity: Moderate Severity scale (1-10): 9 Quality: Cramping Consistency: Constant, Intermittent Improves With: Nothing - Related Data Previous Rx's Medication Instructions Recorded Albuterol Sulfate [Proair Hfa] 1 - 2 puff IH .EVERY 4-6 HOURS PRN 02/12/18 #1 inhaler Hydrocodone/Acetaminophen [[place] 1 each PO Q6HR #10 tablet 11/29/18 5-325 Tablet] Prednisone [Prednisone 10Mg] 10 mg PO ASDIR #30 tab 11/29/18 Allergies Allergy/AdvReac Type Severity Reaction Status Date / Time ampicillin Allergy RASH Verified 11/29/18 15:55 Travel Screening - Travel/Exposure Within Last 30 Days Have you traveled within the last 30 days?: No - Travel/Exposure Within Last Year Have you traveled outside the [place] in the last year?: No - Additonal Travel Details Have you been exposed to anyone with a communicable illness?: No - Travel Symptoms Symptom Screening: None Review of Systems Reviewed: No additional complaints except as noted below Constitutional: Reports: As per HPI. Denies: Chills, Fever, Malaise, Night sweats, Weakness, Weight change Eyes: Reports: As per HPI. Denies: Eye discharge, Eye pain, Photophobia, Vision change ENT: Reports: As per HPI. Denies: Congestion, Dental pain, Ear pain, Epistaxis, Hearing loss, Throat pain Respiratory: Reports: As per HPI. Denies: Cough, Dyspnea, Hemoptysis, Stridor, Wheezes Cardiovascular: Reports: As per HPI. Denies: Arrhythmia, Chest pain, Dyspnea on exertion, Edema, Murmurs, Orthopnea, Palpitations, Paroxysmal nocturnal dyspnea, Rheumatic Fever, Syncope Endocrine: Reports: As per HPI. Denies: Fatigue, Heat or cold intolerance, Polydipsia, Polyuria Gastrointestinal: Reports: As per HPI, Abdominal pain. Denies: Constipation, Diarrhea, Hematemesis, Hematochezia, Melena, Nausea, Vomiting Genitourinary: Reports: As per HPI. Denies: Abnormal menses, Discharge, Dyspareunia, Dysuria, Frequency, Hematuria, Incontinence, Retention, Urgency Musculoskeletal: Reports: As per HPI. Denies: Arthralgia, Back pain, Gout, Joint swelling, Myalgia, Neck pain Skin: Reports: As per HPI. Denies: Bruising, Change in color, Change in hair/nails, Lesions, Pruritus, Rash Neurological: Reports: As per HPI. Denies: Abnormal gait, Confusion, Headache, Numbness, Paresthesias, Seizure, Tingling, Tremors, Vertigo, Weakness Psychiatric: Reports: As per HPI. Denies: Anxiety, Auditory hallucinations, Depression, Homicidal thoughts, Suicidal thoughts, Visual hallucinations Hematological/Lymphatic: Reports: As per HPI. Denies: Anemia, Blood Clots, Easy bleeding, Easy bruising, Swollen glands Past Medical History - SOCIAL HISTORY Smoking Status: Current every day smoker Alcohol Use: None Drug Use: None - RESPIRATORY Hx Respiratory Disorders: Yes Comment:: Sarcoidosis - CARDIOVASCULAR Hx Cardio Disorders: No - NEURO Hx Neuro Disorders: No - GI Hx GI Disorders: Yes Hx Crohn's Disease: Yes - Hx Genitourinary Disorders: No - ENDOCRINE Hx Endocrine Disorders: No - MUSCULOSKELETAL Hx Musculoskeletal Disorders: Yes Hx Arthritis: Yes - PSYCH Hx Psych Problems: Yes Hx Anxiety: Yes Hx Depression: Yes - HEMATOLOGY/ONCOLOGY Hx Hematology/Oncology Disorders: No Family Medical History Any Significant Family History?: Yes Family Hx Comment (NOT TO BE USED IN PLACE OF ITEMS BELOW): denies Physical Exam - General General Appearance: Alert, Oriented x3, Cooperative, No acute distress - Head Head exam: Normal inspection - Eye Eye exam: Normal appearance, PERRL Pupils: Normal accommodation - ENT ENT exam: Normal exam, Mucous membranes moist, Normal external ear exam, Normal orophraynx, TM's normal bilaterally Ear exam: Normal external inspection. negative: External canal tenderness Nasal Exam: Normal inspection. negative: Discharge, Sinus tenderness Mouth exam: Normal external inspection, Tongue normal Teeth exam: Normal inspection. negative: Dental caries Throat exam: Normal inspection. negative: Tonsillar erythema, Tonsillar exudate - Neck Neck exam: Normal inspection, Full ROM. negative: Tenderness - Respiratory Respiratory exam: Normal lung sounds bilaterally. negative: Respiratory distress - Cardiovascular Cardiovascular Exam: Regular rate, Normal rhythm, Normal heart sounds - GI/Abdominal GI/Abdominal exam: Soft, Normal bowel sounds, Tenderness (right lower quad pain) - Rectal Rectal exam: Deferred - exam: Deferred - Extremities Extremities exam: Normal inspection, Full ROM, Normal capillary refill. negative: Tenderness - Back Back exam: Reports: Normal inspection, Full ROM. Denies: Muscle spasm, Rash noted, Tenderness - Neurological Neurological exam: Alert, Normal gait, Oriented X3, Reflexes normal - Psychiatric Psychiatric exam: Normal affect, Normal mood - Skin Skin exam: Dry, Intact, Normal color, Warm Course Vital Signs 11/29/18 15:48 Temperature 98.1 F Pulse Rate 89 Respiratory 18 Rate Blood Pressure 129/84 Pulse Ox 99 - Reevaluation(s) Reevaluation #1: feeling better 11/29/18 19:08 Medical Decision Making - Data Complexity MDM Data: Labs Ordered and/or Reviewed (wbc 7,000), X-Ray Ordered and/or Reviewed (ct abd pelvis neg) - Lab Data Result diagrams: 11/29/18 16:27 11/29/18 16:27 Disposition Clinical Impression: Abdominal pain Qualifiers: Abdominal location: right lower quadrant Qualified Code(s): R10.31 - Right lower quadrant pain Crohn disease Qualifiers: Gastrointestinal tract location: small intestine Digestive disease complication type: without complication Qualified Code(s): K50.00 - Crohn's disease of small intestine without complications Disposition: Home, Self-Care Condition: (1) Good Instructions: Abdominal Pain (ED) Additional Instructions: bland diet follow up with family Dr or GI Dr next week Prescriptions: Hydrocodone/Acetaminophen [[place] 5-325 Tablet] 1 each PO Q6HR #10 tablet Prednisone [Prednisone 10Mg] 10 mg PO ASDIR #30 tab Forms: Patient Portal Access Time of Disposition: 19:01 Quality - Quality Measures Quality Measures: N/A - Blood Pressure Screening Does Patient Have Any of the Following: No Blood Pressure Classification: Pre-Hypertensive BP Reading Systolic Measurement: 129 Diastolic Measurement: 84 Screening for High Blood Pressure: < Pre-Hypertensive BP, F/U Documented > [G8950] Pre-Hypertensive Follow-up Interventions: Referral to alternative/primary care provider.
[2018-11-29] MEDS ORDERED: LORAZEPAM 2 MG/ML VIAL IV ONE (16:12)
[2018-11-29 16:41] LABS: BASO % 0.3 % (0-6); EOS % 3.9 % (0-6); GRAN % 48.5 % (47-80); HEMATOCRIT 36.8 % (35.0-47.0); LYMPH % 38.4 % (16-45); MEAN CELL VOLUME 90.9 fl (81-97); MEAN CORPUSCULAR HEMOGLOBIN 29.6 pg (27-33); MEAN CORPUSCULAR HGB CONC 32.6 g/dl (32-36); MEAN PLATELET VOLUME 9.5 fl (7.4-10.4); MONO % 8.9 % (0-9); PLATELET COUNT 358 K/uL (130-400); RED BLOOD COUNT 4.05 M/uL (3.80-5.40); RED CELL DISTRIBUTION WIDTH 12.9 % (11.5-14.5)
[2018-11-29 16:41] LABS: URINE APPEARANCE CLEAR; URINE BILIRUBIN NEGATIVE (NEGATIVE); URINE BLOOD NEGATIVE (NEGATIVE); URINE COLOR YELLOW; URINE GLUCOSE (UA) NEGATIVE (NEGATIVE); URINE KETONE NEGATIVE (NEGATIVE); URINE LEUKOCYTE ESTERASE NEGATIVE (NEGATIVE); URINE NITRITE NEGATIVE (NEGATIVE); URINE PROTEIN NEGATIVE (NEGATIVE); URINE UROBILINOGEN 0.2 E.U./dL (0.20 - 1.00)
[2018-11-29 16:54] LABS: BILIRUBIN,TOTAL < 0.20 mg/dL (0.2-1.0); BLOOD UREA NITROGEN 11 mg/dL (6-20); CREATININE 0.6 mg/dL (0.5-0.9); EST GLOMERULAR FILTRATION RATE > 60 mL/min
[2018-11-29 16:55] LABS: LIPASE 41 U/L (13-60); TOTAL PROTEIN 6.7 g/dL (6.6-8.7)
[2018-11-29 16:57] LABS: GLUCOSE,RANDOM 100 mg/dL (74-109)
[2018-11-29 16:59] LABS: ALT/SGPT 19 U/L (<33)
[2018-11-29 17:00] LABS: ALBUMIN 4.4 g/dL (4.0-5.0); ALKALINE PHOSPHATASE 94 U/L (35-104); AST/SGOT 21 U/L (10.0-35.0); BILIRUBIN,DIRECT < 0.2 mg/dL (0-0.3)
[2018-11-29] MEDS ORDERED: MORPHINE SULFATE 10MG/1ML **1ML VIAL IVP ONE (17:33)
[2018-11-29] MEDS ORDERED: HYDROCODONE/APAP 5/325MG TABLET PO ONE (19:14)
--- NOTE | 2018-12-01 06:48 | CT SCAN REPORT ---
EXAM: CT SCAN ABDOMEN/PELVIS WO CONTRAST HISTORY: LOWER ABDOMINAL PAIN, HISTORY OF CROHN'S DISEASE. HYSTERECTOMY. CHOLECYSTECTOMY. APPENDECTOMY. TECHNIQUE: Axial CT scan of the abdomen and pelvis obtained without oral or IV contrast at the referring physician's request. COMPARISON: CT abdomen and pelvis, 08/12/18. FINDINGS: Postop change at the right lung base again noted as before. The gallbladder is again noted to be surgically absent with surgical clips in the gallbladder fossa. Uterus also surgically absent and the appendix not clearly seen consistent with the surgical history provided of appendectomy. No intrarenal calculi or hydronephrosis identified on either side. No hydroureter seen on either side. As such, the ureters are somewhat difficult to follow in their entire course throughout the retroperitoneum and pelvis in their nondilated state, but no definite ureteral calculus seen on either side and no bladder calculus evident. Evaluation of the bowel and viscera extremely limited without oral or IV contrast today. Given this limitation, no definite hepatic, splenic, adrenal, pancreatic, or renal mass identified. On the prior CT, note was made of some wall thickening and enhancement of the terminal ileum and minor wall thickening of the adjacent proximal ascending colon. This is difficult to identify today without contrast with no definite abnormality of the terminal ileum or adjacent colon identified today. No definite free intraperitoneal air or free intraperitoneal fluid identified. Small umbilical hernia containing adipose tissue but no bowel. IMPRESSION: 1. POSTOP CHANGES BEFORE INCLUDING AT THE RIGHT LUNG BASE, CHOLECYSTECTOMY, HYSTERECTOMY, AND APPENDECTOMY. 2. SMALL UMBILICAL HERNIA CONTAINING ADIPOSE TISSUE BUT NO BOWEL. 3. NO DEFINITE URINARY TRACT CALCULI OR HYDRONEPHROSIS EVIDENT. 4. NO DEFINITE ACUTE FINDINGS IDENTIFIED. STUDY LIMITED BY LACK OF ORAL AND IV CONTRAST. NO FREE AIR OR FREE FLUID EVIDENT. JOB NUMBER: [id number] [facility]
== END 2018-11-29 19:32 | disposition home or self-care (01) ==
LOC: ER 15:35
DX: K50.00 Crohn's disease of small intestine without complications (principal); R10.31 Right lower quadrant pain; F17.210 Nicotine dependence, cigarettes, uncomplicated
CPT/HCPCS: 99284 ×2; 96374; 96375; 83690; 85025; 80076; 80048; 81003; 74176; J1885; J2405; J2060; J2270; J2930; J7030

== ENCOUNTER 2018-12-22 21:38 | Emergency (ER) | payer MEDICAID ==
[2018-12-22] MEDS ORDERED: ONDANSETRON HCL IV 4 MG/2 ML VIAL IVP ONE (21:50)
[2018-12-22] MEDS ORDERED: MORPHINE SULFATE 5 MG/ML VIAL IVP ONE (21:50)
--- NOTE | 2018-12-22 21:56 | Emergency Department Record ---
History of Present Illness - General Chief Complaint: Abdominal Pain Stated Complaint: ABN PAIN/CHRONS FLARE UP Time Seen by Provider: 12/22/18 21:42 Source: Patient Mode of Arrival: Ambulatory Limitations: No limitations - History of Present Illness Initial Comments: 43 yo female presents to ED for evaluation of worsening RLQ pain symptoms for the past several weeks, reports "cramping" and nausea symptoms. Patient reports a history of crohn's disease, underwent colonoscopy 11/24 per patient that demonstrated "erosions at the terminal ilium". Patient was then seen in ED 5 days later (11/29) for Crohn's flare, laboratory studies and CT imaging failed to demonstrate an acute process. Patient was discharged home on [place] and Prednisone with instructions to follow-up with her GI specialist. Patient reports that she called her GI specialist in [place] last due to continued pain symptoms, was told to "come back to the ED". Patient denies fevers, chills, or urinary symptoms. Patient does report "bloody stools". Patient reports previous appendectomy, hysterectomy, and cholecystectomy. Patient's Bentyl was refilled by phone earlier today, reports that she has prescription nausea medication at home as well. MD Complaint: Abdominal pain Onset/Timin -: Month(s) Location: RLQ Radiation: None Severity: Severe Severity scale (1-10): 9 Quality: Cramping Consistency: Constant Improves With: Nothing Worsens With: Nothing Context: Other Associated Symptoms: Diarrhea, Nausea - Related Data LMP (females 10-50): Unknown Home Medications Medication Instructions Recorded Confirmed Last Taken Dicyclomine HCl [Bentyl] 10 mg PO Q6H 12/22/18 12/22/18 12/22/18 Previous Rx's Medication Instructions Recorded Albuterol Sulfate [Proair Hfa] 1 - 2 puff IH .EVERY 4-6 HOURS PRN 02/12/18 #1 inhaler Allergies Allergy/AdvReac Type Severity Reaction Status Date / Time ampicillin Allergy RASH Verified 11/29/18 15:55 Travel Screening - Travel/Exposure Within Last 30 Days Have you traveled within the last 30 days?: No - Travel Symptoms Symptom Screening: Stomach Pain Review of Systems Constitutional: Denies: Chills, Fever, Malaise, Night sweats Eyes: Denies: Eye discharge, Eye pain ENT: Denies: Congestion, Ear pain, Epistaxis Respiratory: Denies: Cough, Dyspnea Cardiovascular: Denies: Chest pain, Dyspnea on exertion Endocrine: Denies: Fatigue, Heat or cold intolerance Gastrointestinal: Reports: Abdominal pain, Hematochezia, Nausea, Vomiting. Denies: Constipation, Diarrhea Genitourinary: Denies: Incontinence, Retention Musculoskeletal: Denies: Arthralgia, Back pain Skin: Denies: Bruising, Change in color Neurological: Denies: Abnormal gait, Confusion, Headache, Seizure Psychiatric: Denies: Anxiety Hematological/Lymphatic: Denies: Anemia, Blood Clots Past Medical History - SOCIAL HISTORY Smoking Status: Current every day smoker Alcohol Use: None Drug Use: None - RESPIRATORY Hx Respiratory Disorders: Yes Comment:: Sarcoidosis - CARDIOVASCULAR Hx Cardio Disorders: No - NEURO Hx Neuro Disorders: No - GI Hx GI Disorders: Yes Hx Crohn's Disease: Yes - Hx Genitourinary Disorders: No - ENDOCRINE Hx Endocrine Disorders: No - MUSCULOSKELETAL Hx Musculoskeletal Disorders: Yes Hx Arthritis: Yes - PSYCH Hx Psych Problems: Yes Hx Anxiety: Yes Hx Depression: Yes - HEMATOLOGY/ONCOLOGY Hx Hematology/Oncology Disorders: No Family Medical History Any Significant Family History?: No Family Hx Comment (NOT TO BE USED IN PLACE OF ITEMS BELOW): denies Physical Exam - General General Appearance: Alert, Oriented x3, Cooperative, Mild distress, Anxious Limitations: No limitations - Head Head exam: Atraumatic, Normocephalic, Normal inspection Head exam detail: negative: Abrasion, Contusion, Garzon's sign, General tenderness, Hematoma, Laceration - Eye Eye exam: Normal appearance. negative: Conjunctival injection, Periorbital swelling, Periorbital tenderness, Scleral icterus - ENT Ear exam: negative: Auricular hematoma, Auricular trauma Nasal Exam: negative: Active bleeding, Discharge, Dried blood, Foreign body Mouth exam: negative: Drooling, Laceration, Muffled voice, Tongue elevation - Neck Neck exam: Normal inspection. negative: Meningismus, Tenderness - Respiratory Respiratory exam: Normal lung sounds bilaterally. negative: Rales, Respiratory distress, Rhonchi, Stridor - Cardiovascular Cardiovascular Exam: Regular rate, Normal rhythm, Normal heart sounds - GI/Abdominal GI/Abdominal exam: Soft, Normal bowel sounds, Tenderness (TTP RLQ, no rebound or guarding symptoms are present.). negative: Organomegaly, Rebound, Rigid - Rectal Rectal exam: Deferred - exam: Deferred - Extremities Extremities exam: Normal inspection. negative: Pedal edema, Tenderness - Back Back exam: Denies: CVA tenderness (R), CVA tenderness (L) - Neurological Neurological exam: Alert, Normal gait, Oriented X3 - Psychiatric Psychiatric exam: Normal affect, Normal mood - Skin Skin exam: Normal color. negative: Abrasion Type of lesion: negative: abrasion Course Vital Signs 12/22/18 21:43 Temperature 98.0 F Pulse Rate [ 99 H Left] Respiratory 16 Rate Blood Pressure 149/98 [Left Arm] Pulse Ox 99 - Reevaluation(s) Reevaluation #1: 12/22/18 21:57 CT Abdomen/Pelvis 11/29/18: Post-operative changes Small umbilical hernia containing adipose tissue, no bowel No definite urinary tract calculi or hydronephrosis No definite acute findings are present, limited due to the lack of oral/IV con trast. No free air or fluid evident. Reevaluation #2: 12/22/18 22:00 MAPS was reviewed: Hydrocodone #10 mg filled 11/29 Tramadol #45 tablets filled 12/02 Reevaluation #3: 12/22/18 22:25 Laboratory studies were reviewed and appear grossly unremarkable for an acute process except for WBC 13.0. Patient's examination does not appear c/w an acute surgical process (no peritoneal sings, rebound, or guarding are present on examination). Repeat CT imaging is not felt to be necessary based on recent CT imaging result, laboratory study results, and patient's clinical examination. Will consult with on-call provider for the patient's GI specialist (Dr. Galvin, [place], [place]) for further recommendations. Reevaluation #4: 12/22/18 22:34 Case was discussed with Dr. Lim (on-call for Dr. Galvin), in in agreement that repeat CT imaging does not appear indicated based on my examination and laboratory results. Does not recommend Prednisone or other acute treatment for Crohn's at this time, recommends that the patient call Dr. Galvin in the morning for a follow-up appointment for further evaluation of her ongoing abdominal pain symptoms for >3 weeks. Patient does see a pain specialist as well, has appointment Saturday with her specialist. Patient reports that she does not want to void her pain contract as well. I did offer Prednisone if the patient felt it may improve her symptoms, patient declined. Patient reports previous adverse reactions to sulfasalazine as well. Patient was updated on all results, reports that her pain symptoms are improved, and the patient appears stable for discharge at this time with continuance of her Bentyl and Phenergan as previously prescribed. Medical Decision Making - Lab Data Result diagrams: 12/22/18 21:53 12/22/18 21:53 Disposition Disposition: Discharge Clinical Impression: Abdominal pain Qualifiers: Abdominal location: right lower quadrant Qualified Code(s): R10.31 - Right lower quadrant pain Disposition: Home, Self-Care Condition: (2) Stable Instructions: Abdominal Pain (ED) Additional Instructions: Return to ED if your symptoms worsen or if you have any concerns. Bentyl as prescribed Follow-up with Dr. Galvin in 1-3 days as directed. Forms: Patient Portal Access Time of Disposition: 22:38 Quality - Quality Measures Quality Measures: N/A - Blood Pressure Screening Does Patient Have Any of the Following: No Blood Pressure Classification: Hypertensive Reading Systolic Measurement: 149 Diastolic Measurement: 98 Screening for High Blood Pressure: < First Hypertensive BP, F/U Documented > [G8950] First Hypertensive Follow-up Interventions: Referral to alternative/primary care provider.
[2018-12-22] MEDS ORDERED: 0.9 % SODIUM CHLORIDE 1000ML 1,000 ML IV SCH (22:00)
[2018-12-22 22:07] LABS: URINE APPEARANCE CLEAR; URINE BILIRUBIN NEGATIVE (NEGATIVE); URINE BLOOD TRACE-I (NEGATIVE); URINE COLOR YELLOW; URINE GLUCOSE (UA) NEGATIVE (NEGATIVE); URINE KETONE NEGATIVE (NEGATIVE); URINE LEUKOCYTE ESTERASE SMALL (NEGATIVE); URINE NITRITE NEGATIVE (NEGATIVE); URINE PROTEIN NEGATIVE (NEGATIVE); URINE UROBILINOGEN 0.2 E.U./dL (0.20 - 1.00)
[2018-12-22 22:07] LABS: BASO % 0.1 % (0-6); EOS % 3.3 % (0-6); GRAN % 67.4 % (47-80); HEMATOCRIT 39.5 % (35.0-47.0); HEMOGLOBIN 13.3 gm/dl (11.6-16.0); LYMPH % 20.9 % (16-45); MEAN CELL VOLUME 89.2 fl (81-97); MEAN CORPUSCULAR HGB CONC 33.7 g/dl (32-36); MEAN PLATELET VOLUME 9.9 fl (7.4-10.4); MONO % 8.3 % (0-9); PLATELET COUNT 367 K/uL (130-400); RED BLOOD COUNT 4.43 M/uL (3.80-5.40); RED CELL DISTRIBUTION WIDTH 12.8 % (11.5-14.5)
[2018-12-22 22:15] LABS: URINE BACTERIA FEW; URINE EPITHELIAL CELLS 0 - 2 (FEW); URINE RBC NONE SEEN (NONE SEEN); URINE WBC 0 - 2 (0-2/hpf)
[2018-12-22 22:16] LABS: BLOOD UREA NITROGEN 14 mg/dL (6-20); CREATININE 0.8 mg/dL (0.5-0.9); EST GLOMERULAR FILTRATION RATE > 60 mL/min
[2018-12-22 22:17] LABS: LIPASE 41 U/L (13-60)
[2018-12-22 22:19] LABS: GLUCOSE,RANDOM 91 mg/dL (74-109)
[2018-12-22 22:22] LABS: ALBUMIN 4.7 g/dL (4.0-5.0); ALT/SGPT 21 U/L (<33); AST/SGOT 23 U/L (10.0-35.0)
[2018-12-22 22:24] LABS: ALKALINE PHOSPHATASE 113 U/L (35-104)
== END 2018-12-22 22:50 | disposition home or self-care (01) ==
LOC: ER 21:38
DX: R10.31 Right lower quadrant pain (principal); R11.0 Nausea; R19.7 Diarrhea, unspecified; K50.90 Crohn's disease, unspecified, without complications; F17.210 Nicotine dependence, cigarettes, uncomplicated
CPT/HCPCS: 80053; 81001; 83690; 85025; 96361; 96374; 96375; 99284; J2405; J7030

== ENCOUNTER 2019-02-27 19:30 | Emergency (ER) | payer MEDICAID ==
[2019-02-27] MEDS ORDERED: IPRATROPIUM/ALBUTEROL (0.5MG/3MG) NEB INH ONE (20:03)
--- NOTE | 2019-02-27 20:04 | Emergency Department Record ---
History of Present Illness - General Chief Complaint: Chest Pain Stated Complaint: PAIN AND TIGHTNESS IN CHEST AND BACK Time Seen by Provider: 02/27/19 19:47 Source: Patient Mode of Arrival: Ambulatory Limitations: No limitations - History of Present Illness Initial Comments: The patient is here due to worsening coughing and mild SOB for at least a week. She has been having pain in her chest and back recently also with worsening pain with deep breathing for a few days also. She describes the pain as sharp and stabbing and worse with coughing and twisting. 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 She is scheduled for treatment for the TB in a couple of months. The patient states she did talk with her PCP and was told to go to the ER to be checked for Sarcoidosis or TB causing the problems. The patient did have a neg CXR on 02/03/19 here at [facility]. Complaint: Other Onset/Timin -: Days(s) Pain Location: Substernal, Left chest, Right chest Pain Radiation: Back Severity: Moderate Severity scale (1-10): 8 Quality: Ripping, Sharp Consistency: Constant Improves With: Nothing Context: New medications Anginal Symptoms: Diaphoresis Treatments Prior to Arrival: None - Related Data Previous Rx's Medication Instructions Recorded Albuterol Sulfate [Proair Hfa] 1 - 2 puff IH .EVERY 4-6 HOURS PRN 02/12/18 #1 inhaler Doxycycline Monohydrate [Mondoxyne 100 mg PO BID 7 Days #14 capsule 02/27/19 Nl] Prednisone [Prednisone 20Mg] 40 mg PO DAILY #10 tab 02/27/19 Allergies Allergy/AdvReac Type Severity Reaction Status Date / Time ampicillin Allergy RASH Verified 11/29/18 15:55 Travel Screening - Travel/Exposure Within Last 30 Days Have you traveled within the last 30 days?: No - Travel/Exposure Within Last Year Have you traveled outside the [place] in the last year?: No - Additonal Travel Details Have you been exposed to anyone with a communicable illness?: No - Travel Symptoms Symptom Screening: None Past Medical History - SOCIAL HISTORY Smoking Status: Current every day smoker Alcohol Use: None - RESPIRATORY Hx Respiratory Disorders: Yes Comment:: Sarcoidosis - CARDIOVASCULAR Hx Cardio Disorders: No - NEURO Hx Neuro Disorders: No - GI Hx GI Disorders: Yes Hx Crohn's Disease: Yes - Hx Genitourinary Disorders: No - ENDOCRINE Hx Endocrine Disorders: No - MUSCULOSKELETAL Hx Musculoskeletal Disorders: Yes Hx Arthritis: Yes - PSYCH Hx Psych Problems: Yes Hx Anxiety: Yes Hx Depression: Yes - HEMATOLOGY/ONCOLOGY Hx Hematology/Oncology Disorders: No Family Medical History Any Significant Family History?: No Family Hx Comment (NOT TO BE USED IN PLACE OF ITEMS BELOW): denies Physical Exam - General General Appearance: Alert, Oriented x3, Cooperative, No acute distress - Head Head exam: Atraumatic, Normocephalic, Normal inspection - Eye Eye exam: Normal appearance, PERRL, EOMI - ENT Throat exam: Normal inspection. negative: Tonsillar erythema, Tonsillar exudate - Neck Neck exam: Normal inspection, Full ROM. negative: Tenderness - Respiratory Respiratory exam: Normal lung sounds bilaterally. negative: Respiratory distress - Cardiovascular Cardiovascular Exam: Regular rate, Normal rhythm, Normal heart sounds - GI/Abdominal GI/Abdominal exam: Soft, Normal bowel sounds. negative: Tenderness - Extremities Extremities exam: Normal inspection, Full ROM, Normal capillary refill. negative: Tenderness - Back Back exam: Reports: Normal inspection - Neurological Neurological exam: Alert, Normal gait. negative: Abnormal gait, Motor sensory deficit Course Vital Signs 02/27/19 19:51 Pulse Rate 120 H Respiratory 24 Rate Blood Pressure 123/101 Pulse Ox 99 - Reevaluation(s) Reevaluation #1: The patient is doing very well at this time and has clear lungs on exam and a RA biox of 100%. I strongly doubt any serious cardiac or pulmonary etiology for the patient's pain given the fact she has no cardiac risk factors, a HEART Score of 0, and a neg Ddimer. I do believe the issues are related to the patient's Sarcoidosis and will prescribe a short course of Prednisone for home. Due to the productive cough we will add Doxycycline also. She is to see her PCP Saturday for recheck. 02/27/19 21:20 Medical Decision Making - Data Complexity MDM Data: Labs Ordered and/or Reviewed, X-Ray Ordered and/or Reviewed, EKG Ordered and/or Reviewed - Lab Data Result diagrams: 02/27/19 20:06 02/27/19 20:06 - EKG Data -: EKG Interpreted by Me EKG: No Acute Changes, Normal EKG - Radiology Data Radiology results: Report reviewed (CXR: Normal.) Disposition Disposition: Discharge Clinical Impression: URI, acute Disposition: Home, Self-Care Condition: (2) Stable Instructions: Acute Bronchitis (ED) Additional Instructions: Please continue your regular medicines and please add the Prednisone and Doxycycline. Please see your family doctor on Saturday for recheck and return to the ER for any worsening symptoms. Prescriptions: Doxycycline Monohydrate [Mondoxyne Nl] 100 mg PO BID 7 Days #14 capsule Prednisone [Prednisone 20Mg] 40 mg PO DAILY #10 tab Forms: Patient Portal Access Time of Disposition: 21:23 Quality - Quality Measures Quality Measures: N/A - Blood Pressure Screening View Details: Yes Does Patient Have Any of the Following: No Blood Pressure Classification: Hypertensive Reading Systolic Measurement: 123 Diastolic Measurement: 101 Screening for High Blood Pressure: < First Hypertensive BP, F/U Documented > [G8950] First Hypertensive Follow-up Interventions: Referral to alternative/primary care provider.
[2019-02-27 20:18] LABS: ABSOLUTE NEUTROPHIL COUNT 3.44; BASO % 0.2 % (0-6); EOS % 3.6 % (0-6); GRAN % 53.3 % (47-80); HEMATOCRIT 38.1 % (35.0-47.0); HEMOGLOBIN 12.6 gm/dl (11.6-16.0); LYMPH % 35.5 % (16-45); MEAN CELL VOLUME 89.2 fl (81-97); MEAN CORPUSCULAR HEMOGLOBIN 29.5 pg (27-33); MEAN CORPUSCULAR HGB CONC 33.1 g/dl (32-36); MEAN PLATELET VOLUME 9.7 fl (7.4-10.4); MONO % 7.4 % (0-9); PLATELET COUNT 379 K/uL (130-400); RED BLOOD COUNT 4.27 M/uL (3.80-5.40); RED CELL DISTRIBUTION WIDTH 12.6 % (11.5-14.5); WHITE BLOOD COUNT W/O DIFF 6.5 K/uL (4.2-12.2)
[2019-02-27 20:30] LABS: BLOOD UREA NITROGEN 15 mg/dL (6-20); CREATININE 0.6 mg/dL (0.5-0.9); EST GLOMERULAR FILTRATION RATE > 60 mL/min
[2019-02-27 20:31] LABS: TOTAL PROTEIN 7.3 g/dL (6.6-8.7)
[2019-02-27 20:33] LABS: GLUCOSE,RANDOM 99 mg/dL (74-109)
[2019-02-27 20:35] LABS: ALB/GLOB RATIO 1.7 (1.1-1.8); ALBUMIN 4.6 g/dL (4.0-5.0); ALT/SGPT 27 U/L (<33); AST/SGOT 24 U/L (10.0-35.0); INR 0.9; PARTIAL THROMBOPLASTIN TIME 25.9 SECONDS (24.5-39.1); PROTHROMBIN TIME (PATIENT) 9.7 SECONDS (9.5-12.1)
[2019-02-27 20:36] LABS: ALKALINE PHOSPHATASE 113 U/L (35-104)
[2019-02-27 20:37] LABS: NTpro B-NATRIURETIC PEPTIDE 51.72 pg/mL (<125)
[2019-02-27] MEDS: 0.9 % SODIUM CHLORIDE 1,000 ML BAG IV ONE (20:53)
--- NOTE | 2019-02-27 21:00 | RADIOLOGY REPORT ---
EXAMINATION: Frontal and Lateral Chest EXAM DATE: 02/27/2019 8:53 PM INDICATION: MANJEET and chronic cough FINDINGS: Comparison with 02/03/2019. Postsurgical change again noted. Frontal and lateral views show clear lungs, normal heart size, and normal hilar and mediastinal structures. IMPRESSION: Normal chest. Dictated by: Michael Diaz MD on 02/27/2019 8:56 PM. .
[2019-02-27] MEDS ORDERED: METHYLPREDNISOLONE PF 125MG/VIAL IVP ONE (21:25)
== END 2019-02-27 21:57 | disposition home or self-care (01) ==
LOC: ER 19:30
DX: J06.9 Acute upper respiratory infection, unspecified (principal); R06.02 Shortness of breath; R07.89 Other chest pain; R05 Cough; D86.9 Sarcoidosis, unspecified
CPT/HCPCS: 71046; 80053; 83880; 84484; 85025; 85379; 85610; 85730; 93005; 93010; 94640; 96374; 99284; J2930; J7030

== ENCOUNTER 2019-05-01 19:33 | Emergency (ER) | payer MEDICAID ==
--- NOTE | 2019-05-01 20:17 | Emergency Department Record ---
History of Present Illness - General Stated Complaint: ABD PAIN/CRONES Time Seen by Provider: 05/01/19 20:03 Source: Patient Mode of Arrival: Ambulatory Limitations: No limitations - History of Present Illness Initial Comments: 43 yo female presents worsening abdominal pain for the last 2-3 months. She has Crohn's Disease. She is cared for in [place]. She is on a monthly infusion of a study drug. She states she has not improved on the medication. Her next colonoscopy in May 11. The pain is occurring above her normal daily pain. She has been out of [place] for 2-3 days. She is nauseated. The stools at times look a little "redder" but not emigdio blood. She has had bloody stool in the past with her Crohn's. No fever. MD Complaint: Abdominal pain -: Month(s) Location: Diffuse Radiation: Other Migration to: Other Severity: Moderate Quality: Other Consistency: Constant Improves With: Other Worsens With: Eating Context: Other Associated Symptoms: Anorexia - Related Data Previous Rx's Medication Instructions Recorded Albuterol Sulfate [Proair Hfa] 1 - 2 puff IH .EVERY 4-6 HOURS PRN 02/12/18 #1 inhaler Allergies Allergy/AdvReac Type Severity Reaction Status Date / Time ampicillin Allergy RASH Verified 11/29/18 15:55 Review of Systems Constitutional: Denies: Chills, Fever, Malaise, Weakness Eyes: Denies: Eye discharge ENT: Denies: Congestion, Throat pain Respiratory: Denies: Cough, Dyspnea, Hemoptysis, Wheezes Cardiovascular: Denies: Chest pain, Palpitations, Syncope Endocrine: Denies: Fatigue, Polydipsia, Polyuria Gastrointestinal: Reports: Abdominal pain, Diarrhea, Nausea, Vomiting Genitourinary: Denies: Dysuria, Urgency Musculoskeletal: Denies: Arthralgia, Back pain, Myalgia Skin: Denies: Bruising, Change in color, Rash Neurological: Denies: Headache Psychiatric: Denies: Anxiety Hematological/Lymphatic: Denies: Easy bleeding, Easy bruising Past Medical History - SOCIAL HISTORY Smoking Status: Current every day smoker - RESPIRATORY Hx Respiratory Disorders: Yes Comment:: Sarcoidosis - CARDIOVASCULAR Hx Cardio Disorders: No - NEURO Hx Neuro Disorders: No - GI Hx GI Disorders: Yes Hx Crohn's Disease: Yes - Hx Genitourinary Disorders: No - ENDOCRINE Hx Endocrine Disorders: No - MUSCULOSKELETAL Hx Musculoskeletal Disorders: Yes Hx Arthritis: Yes - PSYCH Hx Psych Problems: Yes Hx Anxiety: Yes Hx Depression: Yes - HEMATOLOGY/ONCOLOGY Hx Hematology/Oncology Disorders: No Family Medical History Family Hx Comment (NOT TO BE USED IN PLACE OF ITEMS BELOW): denies Physical Exam - General General Appearance: Alert, Oriented x3, Cooperative, No acute distress Limitations: No limitations - Head Head exam: Atraumatic, Normal inspection - Eye Eye exam: Normal appearance. negative: Conjunctival injection - ENT ENT exam: Normal exam, Mucous membranes moist Ear exam: Normal external inspection Nasal Exam: Normal inspection Mouth exam: Normal external inspection - Neck Neck exam: Normal inspection - Respiratory Respiratory exam: Normal lung sounds bilaterally. negative: Respiratory distress - Cardiovascular Cardiovascular Exam: Regular rate, Normal rhythm, Normal heart sounds - GI/Abdominal GI/Abdominal exam: Soft, Normal bowel sounds, Tenderness, Other (Very soft. No focal tenderness. No rebound or guarding. ). negative: Distended, Guarding, Hernia, Rebound, Rigid - Rectal Rectal exam: Deferred - exam: Deferred - Extremities Extremities exam: Normal inspection. negative: Tenderness - Back Back exam: Denies: CVA tenderness (R), CVA tenderness (L) - Neurological Neurological exam: Alert, Oriented X3 - Psychiatric Psychiatric exam: Normal affect, Normal mood. negative: Agitated, Anxious - Skin Skin exam: Dry, Intact, Normal color, Warm Course Vital Signs 05/01/19 19:54 Temperature 98.2 F Pulse Rate [ 95 H Right] Respiratory 20 Rate Blood Pressure 157/92 [Left Arm] Pulse Ox 100 - Reevaluation(s) Reevaluation #1: 05/01/19 21:22 The labs results were reviewed There are no acute significant abnormalities of the CBC There are no acute significant abnormalities of the CMP The UA was reviewed. No signs of infection or significant acute abnormality The HCG is negative 05/01/19 22:[address] scan is normal The patient was informed of her results I encouraged her to follow up closely with her PCP and GI doctors in [place] and consider calling them sooner if worse Medical Decision Making - Lab Data Result diagrams: 05/01/19 20:50 05/01/19 20:50 Disposition Disposition: Discharge Clinical Impression: Crohn's disease Disposition: Home, Self-Care Condition: (1) Good Instructions: Crohn Disease (ED), Abdominal Pain (ED) Additional Instructions: Review this ER visit and the tests performed with your family doctor Call your doctor for the next available follow up appointment Return to the ER for a recheck immediately if worse, any new concerns or questions Forms: Patient Portal Access Time of Disposition: 22:45 Quality - Quality Measures Quality Measures: N/A - Blood Pressure Screening Does Patient Have Any of the Following: No Blood Pressure Classification: Pre-Hypertensive BP Reading Systolic Measurement: 144 Diastolic Measurement: 87 Screening for High Blood Pressure: < Pre-Hypertensive BP, F/U Documented > [G8950] Pre-Hypertensive Follow-up Interventions: Referral to alternative/primary care provider.
[2019-05-01] MEDS ORDERED: MORPHINE SULFATE 5 MG/ML VIAL IVP ONE ×2 (20:19→21:27)
[2019-05-01] MEDS ORDERED: ONDANSETRON HCL IV 4 MG/2 ML VIAL IVP ONE (20:19)
[2019-05-01] MEDS ORDERED: ACETAMINOPHEN 1,000 MG/100 ML BTL IVPB ONE (20:19)
[2019-05-01] MEDS ORDERED: 0.9 % SODIUM CHLORIDE 1,000 ML BAG IV ONE (20:19)
[2019-05-01 21:01] LABS: ABSOLUTE NEUTROPHIL COUNT 4.05; BASO % 0.1 % (0-6); GRAN % 55.9 % (47-80); HEMATOCRIT 40.4 % (35.0-47.0); HEMOGLOBIN 13.2 gm/dl (11.6-16.0); LYMPH % 32.5 % (16-45); MEAN CELL VOLUME 89.4 fl (81-97); MEAN CORPUSCULAR HEMOGLOBIN 29.2 pg (27-33); MEAN CORPUSCULAR HGB CONC 32.7 g/dl (32-36); MEAN PLATELET VOLUME 9.6 fl (7.4-10.4); MONO % 8.5 % (0-9); PLATELET COUNT 332 K/uL (130-400); RED BLOOD COUNT 4.52 M/uL (3.80-5.40); RED CELL DISTRIBUTION WIDTH 13.2 % (11.5-14.5); WHITE BLOOD COUNT W/O DIFF 7.3 K/uL (4.2-12.2)
[2019-05-01 21:02] LABS: URINE APPEARANCE CLEAR; URINE BILIRUBIN NEGATIVE (NEGATIVE); URINE BLOOD TRACE-I (NEGATIVE); URINE COLOR YELLOW; URINE GLUCOSE (UA) NEGATIVE (NEGATIVE); URINE KETONE NEGATIVE (NEGATIVE); URINE LEUKOCYTE ESTERASE TRACE (NEGATIVE); URINE NITRITE NEGATIVE (NEGATIVE); URINE PROTEIN NEGATIVE (NEGATIVE); URINE UROBILINOGEN 0.2 E.U./dL (0.20 - 1.00)
[2019-05-01 21:11] LABS: URINE BACTERIA FEW; URINE EPITHELIAL CELLS 0 - 2 (FEW); URINE RBC 0 - 2 (NONE SEEN); URINE WBC 0 - 2 (0-2/hpf)
[2019-05-01 21:12] LABS: HCG,QUALITATIVE URINE NEGATIVE (NEGATIVE)
[2019-05-01 21:15] LABS: BILIRUBIN,TOTAL < 0.20 mg/dL (0.2-1.0); BLOOD UREA NITROGEN 11 mg/dL (6-20); CREATININE 0.6 mg/dL (0.5-0.9); EST GLOMERULAR FILTRATION RATE > 60 mL/min; LIPASE 37 U/L (13-60); TOTAL PROTEIN 7.3 g/dL (6.6-8.7)
[2019-05-01 21:17] LABS: GLUCOSE,RANDOM 100 mg/dL (74-109)
[2019-05-01 21:20] LABS: ALB/GLOB RATIO 1.7 (1.1-1.8); ALBUMIN 4.6 g/dL (4.0-5.0); ALKALINE PHOSPHATASE 111 U/L (35-104); ALT/SGPT 20 U/L (<33); AST/SGOT 23 U/L (10.0-35.0)
--- NOTE | 2019-05-01 22:33 | CT SCAN REPORT ---
EXAMINATION: CT Abdomen and Pelvis with IV Contrast EXAM DATE: 05/01/2019 10:19 PM TECHNIQUE: CT imaging of the abdomen and pelvis was performed with intravenous contrast. Coronal and sagittal images were reconstructed. IV Contrast: The amount and type of contrast are recorded in the medical record. INDICATION: Crohn's abdominal pain COMPARISON: None ENCOUNTER: Not applicable CT ABDOMEN AND PELVIS FINDINGS: Lung Bases: Included extent of the lung bases are clear. Hepatobiliary: The liver has a normal size with a smooth surface. The hepatic and portal veins appear patent. Pancreas: The pancreas is normal. Spleen: The spleen is not enlarged. Adrenals: The adrenal glands are normal. Kidneys, Ureters, & Bladder: Both kidneys have a normal size and there is no hydronephrosis. Both ur eters have a normal caliber and the urinary bladder is unremarkable. Gastrointestinal: The stomach and small bowel are normal with no obstruction or inflammation. Mobile cecum. No inflammatory bowel disease. The large bowel appears normal. Reproductive Organs: Unremarkab le Lymphatic System: There is no adenopathy within the abdomen or pelvis. Vasculature: Normal caliber abdominal aorta. Peritoneum: No free fluid, free air, or inflammation Abdominal Wall & Musculoskeletal: No suspicious bone lesions. IMPRESSION: No CT findings suggestive of inflammatory bowel disease. There is a mobile cecum. Dictated by: Jocelin Kwong DO on 05/01/2019 10:28 PM. .
[2019-05-01] MEDS ORDERED: METHYLPREDNISOLONE PF 125MG/VIAL IVP ONE (22:44)
[2019-05-01] MEDS ORDERED: HYDROCODONE/APAP 5/325MG TABLET PO ONE (22:44)
== END 2019-05-01 23:03 | disposition home or self-care (01) ==
LOC: ER 19:33
DX: K50.90 Crohn's disease, unspecified, without complications (principal); R10.9 Unspecified abdominal pain; R11.0 Nausea; F17.210 Nicotine dependence, cigarettes, uncomplicated
CPT/HCPCS: 99284 ×2; 96376; 96365; 96375; 83690; 85025; 80053; 81001; 81025; 74177; Q9967; J2405; J2930; J7030